=== PATIENT | female | born 1955 | race Caucasian/White ===

== ENCOUNTER 2019-09-01 13:48 | Emergency (ER) | payer OTHER, MEDICARE ==
--- NOTE | 2019-09-01 13:54 | PDOC ---
History of Present Illness - General Chief Complaint: Injury Stated Complaint: TREMORS, FALL, Time Seen by Provider: 09/01/19 13:53 Past History - Past Medical History Allergies/Adverse Reactions: Allergies Allergy/AdvReac Type Severity Reaction Status Date / Time Sulfa (Sulfonamide Allergy Verified 01/28/16 18:04 Antibiotics) Home Medications: Ambulatory Orders Aspirin [Aspir 81] 81 mg PO DAILY 06/22/15 Lisinopril/Hydrochlorothiazide [Lisinopril-Hctz 10-12.5 Mg Tab] 1 each PO HS tablet 06/22/15 Pravastatin Sodium 40 mg PO DAILY tablet 06/22/15 propRANOLol HCL [Inderal La -] 60 mg PO DAILY 06/22/15 Clopidogrel Bisulfate [Plavix -] 75 mg PO DAILY 01/23/16 Cardiac Disorders: Yes (STENT) HTN: Yes Hypercholesterolemia: Yes Kidney Stones: Yes - Surgical History Cardiac Surgery: Yes (STENT) - Immunization History Immunization Up to Date: No - Psycho Social/Smoking Cessation Hx Smoking History: Current some day smoker Have you smoked in the past 12 months: Yes Number of Cigarettes Smoked Daily: 5 'Breaking Loose' booklet given: 01/28/16 Hx Alcohol Use: No Drug/Substance Use Hx: No Substance Use Type: None
[2019-09-01 14:04] VITALS: BMI 56.2
--- NOTE | 2019-09-01 14:39 | PDOC ---
Documentation entered by Roxana Bran SCRIBE, acting as scribe for Ruby Martin DO. Ruby Martin DO: This documentation has been prepared by the oscaribe, Roxana Bran SCRIBE, under my direction and personally reviewed by me in its entirety. I confirm that the documentation accurately reflects all work, treatment, procedures, and medical decision making performed by me. History of Present Illness - General Chief Complaint: Injury Stated Complaint: TREMORS, FALL, Time Seen by Provider: 09/01/19 13:53 History Source: Patient, Family Exam Limitations: No Limitations - History of Present Illness Initial Comments: 09/01/19 15:57 The patient is a 64-year-old female with a past medical history significant for HTN, HLD, s/p stent on baby ASA and benign tremors who presents to the emergency department with increased tremors, left-sided weakness and left sided facial droop. The patient presents accompanied with her brother and cousin, who assisted with the history. The patients brother states prior to today, he last saw her about a month ago, denies the patient having current symptoms during the visit. The patient reports about 3 weeks ago she suffered a fall when she fell backward and landed on her buttocks, denies head injury or LOC. The patient states she was able to get back up and ambulate after. The patient reports about a week following the incident, she suffered another fall outside, when she was walking her dog, who got free from his harness. The patient reports she was able to get back up and ambulate after the fall. The patients cousin reports seeing the patient yesterday, and reports noticing left-sided facial droop, weakness, and increased tremors. Later that day around 9:00 pm, she felt her leg gave out, causing her to suffer another fall onto her right side with difficulty getting up. The patients brother reports he went to visit her today and found her on the floor. The patient reports speaking with Dr. Ghotra following the first fall, who recommended the patient to take Xanax and scheduled an appointment for September 16. Denies chest pain, blurry vision, changes in vision, fever, chills, abdominal pain, nausea, vomiting, diarrhea, numbness, tingling, dysuria, new rashes, neck pain, or back pain. Denies urinary or bowel incontinence. Denies food leaking from the mouth. Denies hx of DM, recent abx use, or recent infection. Allergies: Sulfa. Social history: The patients lives by herself. PCP: Dr. Trent Neurologist: Dr. Ghotra. Past History - Past Medical History Allergies/Adverse Reactions: Allergies Allergy/AdvReac Type Severity Reaction Status Date / Time Sulfa (Sulfonamide Allergy Verified 01/28/16 18:04 Antibiotics) Home Medications: Ambulatory Orders Aspirin [Aspir 81] 81 mg PO DAILY 06/22/15 propRANOLol HCL [Inderal La -] 80 mg PO DAILY 06/22/15 Clopidogrel Bisulfate [Plavix -] 75 mg PO DAILY 01/23/16 Atorvastatin Ca [Lipitor] 40 mg PO HS 09/01/19 Lisinopril 10 mg PO DAILY 09/01/19 Pramipexole Di-HCl [Mirapex] 0.25 mg PO DAILY 09/01/19 Cardiac Disorders: Yes (STENT) COPD: No HTN: Yes Hypercholesterolemia: Yes Kidney Stones: Yes - Surgical History Cardiac Surgery: Yes (STENT) - Immunization History Immunization Up to Date: No - Psycho Social/Smoking Cessation Hx Smoking History: Current some day smoker Have you smoked in the past 12 months: No Number of Cigarettes Smoked Daily: 0 Information on smoking cessation initiated: No 'Breaking Loose' booklet given: 01/28/16 Hx Alcohol Use: No Drug/Substance Use Hx: No Substance Use Type: None Review of Systems - Review of Systems Able to Perform ROS?: Yes Comments:: 09/01/19 15:14 GENERAL/CONSTITUTIONAL: No fever or chills. +weakness. HEAD, EYES, EARS, NOSE AND THROAT: No change in vision. No ear pain or discharge. No sore throat. GASTROINTESTINAL: No nausea, vomiting, diarrhea or constipation. GENITOURINARY: No dysuria, frequency, or change in urination. CARDIOVASCULAR: No chest pain or shortness of breath. RESPIRATORY: No cough, wheezing, or hemoptysis. MUSCULOSKELETAL: No joint or muscle swelling or pain. No neck or back pain. SKIN: +left upper extremity bruising and redness from holding bags on that hand. NEUROLOGIC: L. sided facial droop, increased tremors from baseline, weakness, No headache or LOC. ENDOCRINE: No increased thirst. No abnormal weight change. HEMATOLOGIC/LYMPHATIC: No anemia, easy bleeding, or history of blood clots. ALLERGIC/IMMUNOLOGIC: No hives or skin allergy. *Physical Exam - Vital Signs Last Vital Signs Temp Pulse Resp BP Pulse Ox 98.5 F 63 20 155/110 H 100 09/01/19 13:49 09/01/19 13:49 09/01/19 13:49 09/01/19 13:49 09/01/19 13:49 - Physical Exam Comments: 09/01/19 15:27 Constitutional: Awake, alert, oriented. No acute distress. Head: Normocephalic. Atraumatic Eyes: PERRL. EOMI. Conjunctivae are not pale. ENT: Mucous membranes are moist and intact. Posterior pharynx without exudate or erythema. Uvula midline. Neck: Supple. Full ROM. No lymphadenopathy. Cardiovascular: Regular rate. Regular rhythm. S1, S2 regular. Distal pulses are 2+ and symmetric. Pulmonary/Chest: No evidence of respiratory distress. Clear to auscultation bilaterally No wheezing, rales or rhonchi. Abdominal: Soft and nondistended. There is no tenderness. No rebound, guarding or rigidity. No organomegaly. No palpable masses. Good bowel sounds. Back: No CVA tenderness. No Midline, C spine, T spine or L spine tenderness. Musculoskeletal: No chest wall tenderness. No edema. No cyanosis. No clubbing. Full range of motion in all extremities. No calf tenderness. Radial/ pedal pulses are intact and 2+ bilaterally Skin: +ecchymosis and redness to the left upper extremities, no tenderness or deformities. Skin is warm and dry. No bruising to the back or abdomen. Neurological: +left sided lower facial droop, left upper extremity pronator drift, with 3/5 weakness, left lower extremity pronator drift with 3/5 weakness. Sensation intact. Alert and oriented to person, place, and time. Psychiatric: Good eye contact. Normal interaction, affect and behavior. Heart Score/ECG Review - ECG Intrepretation Comment:: 09/01/19 14:39 sinus at 75, nl axis, nl interval, no acute st/t wave findings ED Treatment Course - LABORATORY CBC & Chemistry Diagram: 09/01/19 14:50 09/01/19 14:50 - RADIOLOGY Radiology Studies Ordered: Category Date Time Status HEAD CT (STROKE) [CT] Stat CT Scan 09/01/19 14:27 Ordered CHEST X-RAY PORTABLE* [RAD] Stat Radiology 09/01/19 14:27 Ordered Medical Decision Making - Critical Care Time Total Critical Care Time (minutes): 45 Critical Care Statement: The care of this patient involved high complexity decision making to prevent further life threatening deterioration of the patient 's condition and/or to evaluate & treat vital organ system(s) failure or risk of failure. - Medical Decision Making 09/01/19 14:37 a/p: 64yo female with L sided weakness and multiple falls x 3 weeks -pt states she feels her legs give out and she falls -cousin (who is a nurse) states she was at her baseline 3 weeks ago prior to the falls starting, then saw again yesterday and noticed L sided facial droop and weakness to the L side -last fall last night, unable to get up off the ground until 9am this AM when the patients brother arrived -concern for cva, concern for rhabdo -will send labs, ekg, head ct, cxr, cpk, trop -pt will need admission -Dr. Ghotra is Neuro -PMD is Dr. 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 Ghotra- covered today by Dr. Chew - states transfer to [facility] is best, agrees with steroids family updated and agrees they want to be transferred to [facility] call placed to the transfer center 09/01/19 15:[address] Zuniga - neurosx at [facility] who accepts pt in transfer agrees with decadron, requests keppra 500mg iv q12 hrs ER to ER for neurosx eval case discussed with Dr. Duque who accepts pt to the ER 09/01/19 16:01 transfer paperwork has been signed by the patient 09/01/19 16:36 [facility] at the bedside to transfer the patient to [facility] Discharge - Discharge Information Problems reviewed: Yes Clinical Impression/Diagnosis: Neoplasm of brain causing mass effect on adjacent structures Condition: Guarded Disposition: TRANSFER ACUTE CARE/OTHER HOSP - Follow up/Referral - Patient Discharge Instructions - Post Discharge Activity - Transfer to Acute Care Facility Receiving Facility Name: [address] Accepting Physician:: Dr. Zuniga, Dr. Duque NIH Stroke Scale - Last Known Well Date/Time & Onset Date Last Known Well: 08/11/19 - Initial Evaluation Level of consciousness: Alert Ask patient the month and their age: Answers both correctly Ask patient to open & close eyes; make fist and let go: Obeys both correctly Best gaze (horizontal eye movement): Normal Visual field testing: No visual field loss Facial paresis (Show teeth/raise eyebrows/close eyes tight): Minor paralysis ( flattened nasolabial fold, asymmetry on smiling) Motor Function: Left Arm: Drift Motor Function: Right Arm: Normal (extends arm 90 (or 45) degrees for 10 seconds without drift Motor Function: Left Leg: Drift Motor Function: Right Leg: Normal (extends leg 30 degrees for 5 seconds without drift) Limb Ataxia: Present in one limb Sensory(Use pinprick test arms,legs,trunk,face/side to side): Normal Best language (Describe picture, name items, read sentences): No Aphasia Dysarthria (read several words): Normal articulation Extinction and Inattention: No abnormality - Total Score NIH Stroke Scale Score: 4 tPA Exclusion checklist 3-4.5h - Time Elapsed Date last known well: 08/11/19 - Thrombolytic Therapy Candidate Is patient eligible for thrombolytic therapy: No - Ineligibility reason(s) Reasons No tPA given: Outside of window - delayed arrival
[2019-09-01 14:59] LABS: BASO % 0.3 % (0-2.0); EOS % 0.1 % (0-4.5); HEMATOCRIT 36.7 % (32.4-45.2); HEMOGLOBIN 11.9 GM/dl (10.7-15.3); LYMPH % 9.1 % (8-40); MCH 28.8 pg (25.7-33.7); MCHC 32.3 g/dl (32.0-36.0); MEAN CELL VOLUME 89.2 fl (80-96); MEAN PLT VOLUME 9.7 fl (7.5-11.1); MONO % 9.5 % (3.8-10.2); PLATELET COUNT 222 K/MM3 (134-434); RBC 4.12 M/mm3 (3.60-5.2); WHITE BLOOD COUNT 8.8 K/mm3 (4.0-10.8)
[2019-09-01 15:02] LABS: INR 1.16 (0.82-1.09)
[2019-09-01 15:09] LABS: ALBUMIN 3.9 g/dl (3.4-5.0); BILIRUBIN,TOTAL 1.2 mg/dl (0.2-1); CALCIUM 9.4 mg/dl (8.5-10); CREATININE 0.9 mg/dl (0.55-1.3); MAGNESIUM 1.3 mg/dL (1.8-2.4); POTASSIUM 3.5 mmol/L (3.5-5.1); TOT PROT 6.9 g/dl (6.4-8.2)
[2019-09-01] MEDS ORDERED: DEXAMETHASONE SOD PHOSPHATE 10 MG/1 ML VIAL IVPUSH ONE (15:11)
[2019-09-01] MEDS ORDERED: DEXAMETHASONE SOD PHOSPHATE 10 MG/1 ML VIAL ONE (15:34)
[2019-09-01] MEDS ORDERED: levETIRAcetam 500 MG/5 ML INJECTION VIAL IVPB ONE ×2 (15:36→15:44)
[2019-09-01] MEDS ORDERED: MAGNESIUM SULF 50% (8.12 MEQ/2 ML-1 GM VIAL) IVPB ONE (16:01)
[2019-09-01] MEDS ORDERED: MAGNESIUM 1GM/D5W - 2 GM/200 ML IVPB IVPB ONE (16:34)
[2019-09-01 19:36] VITALS: BP 103/74; PULSE 90; TEMP 98.8
--- NOTE | 2019-09-02 12:57 | EKG ---
Test Reason : Blood Pressure : / mmHG Vent. Rate : 075 BPM Atrial Rate : 075 BPM P-R Int : 128 ms QRS Dur : 072 ms QT Int : 396 ms P-R-T Axes : 061 014 044 degrees QTc Int : 442 ms NORMAL SINUS RHYTHM NORMAL ECG WHEN COMPARED WITH ECG OF 11-MAR-2010 09:21, BORDERLINE CRITERIA FOR ANTERIOR INFARCT ARE NO LONGER PRESENT Confirmed by BOBBI ALFARO MD ([id number]) on 09/02/2019 12:56:56 PM Referred By: KARLOS FLORES Confirmed By:BOBBI ALFARO MD
== END 2019-09-01 16:22 | disposition short-term general hospital (02) ==
LOC: FER 13:48
PROC: 3E033GC Introduction of Other Therapeutic Substance into Peripheral Vein, Percutaneous Approach (ICD-10-PCS; principal; 2019-09-01)
DX: D49.6 Neoplasm of unspecified behavior of brain (principal); Z95.5 Presence of coronary angioplasty implant and graft; I10 Essential (primary) hypertension; E78.00 Pure hypercholesterolemia, unspecified; N20.0 Calculus of kidney; F17.210 Nicotine dependence, cigarettes, uncomplicated; Z88.2 Allergy status to sulfonamides
CPT/HCPCS: 36415; 70450-TC; 71045-TC-FY; 80053; 82550; 82553; 83605; 83735; 84443; 84484; 85025; 85610; 85730; 86850; 86900; 86901; 93005; 99284-25; J1100